=== PATIENT | female | born 1975 | race Two or more races ===

== ENCOUNTER 2024-07-06 18:57 | Emergency (ER) | payer MEDICAID, OTHER ==
[~2024-07-06] VITALS: Ht 165.1 cm; Wt 61.8 kg
--- NOTE | 2024-07-06 20:32 | ED.PDOC ---
GI ASSESSMENT HPI Comments PATIENT STATES SHE WAS HERE TO FOLLOW UP ON HER ABDOMINAL PAIN. SAYS SHE WAS SEEN TWO DAYS AGO BY DR. GALDAMEZ. STATES HE WAS RECOMMENDED THAT SHE MAY BENEFIT FROM ENDOSCOPY. SHE DOES NOT HAVE PRIMARY CARE DOCTOR NOR INSURANCE. STATES THE PAIN HE WAS SLIGHTLY IMPROVED BUT THE REGLAN SHE WAS SENT HOME WITH DOES NOT HELP MUCH WITH THE NAUSEA. Chief Complaint: Abdominal Pain Time Seen by MD: 19:00 Primary Care Provider: MYLENE Reviewed Notes: Nurses Notes Allergies: Coded Allergies: NO KNOWN ALLERGIES (Unverified , 07/06/24) Information Source: Patient Mode of Arrival: Ambulatory Past Medical History PAST MEDICAL HISTORY: Denies Surgical History: Denies all surgeries TRACK ANNOUNCER History: No Pertinent TRACK ANNOUNCER History Constitutional: denies: chills, diaphoresis, fatigue, fever, malaise, sweats, weakness, others EENTM: denies: blurred vision, double vision, ear bleeding, ear discharge, ear drainage, ear pain, ear ringing, eye pain, eye redness, hearing loss, mouth pain, mouth swelling, nasal discharge, nose bleeding, nose congestion, nose pain, photophobia, tearing, throat pain, throat swelling, voice changes, others Respiratory: denies: cough, hemoptysis, orthopnea, SOB at rest, shortness of breath, SOB with excertion, stridor, wheezing, others Cardiovascular: denies: chest pain, dizzy spells, diaphoresis, Dyspnea on exertion, edema, irregular heart beat, left arm pain, lightheadedness, palpitations, PND, syncope, others Gastrointestinal: reports: abdominal pain, nausea; denies: abdomen distended, blood streaked bowels, constipated, diarrhea, dysphagia, difficulty swallowing, hematemesis, melena, poor appetite, poor fluid intake, rectal bleeding, rectal pain, vomiting, others Genitourinary: denies: abnormal vagina bleeding, burning, dyspareunia, dysuria, flank pain, frequency, hematuria, incontinence, pain, , vagina discharge, urgency, others Neurological: denies: dizziness, fainting, headache, left sided numbness, left sided weakness, numbness, paresthesia, pre-existing deficit, right sided numbness, right sided weakness, seizure, speech problems, tingling, tremors, weakness, others Musculoskeletal: denies: back pain, gout, joint pain, joint swelling, muscle pain, muscle stiffness, neck pain, others Integumetry: denies: bruises, change in color, change in hair/nails, dryness, laceration, lesions, lumps, rash, wounds, others Allergic/Immunocompromised: denies: Difficulty Healing, Frequent Infections, Hives, Itching, others Hematologic/Lymphatic: denies: anemia, blood clots, easy bleeding, easy bruising, swollen glands, others Physical Exam General Appearance: No Apparent Distress, Normal HEENT: Normal ENT Inspection, Pharynx Normal, TMs Normal Neck: Full Range of Motion, Non-Tender, Normal, Normal Inspection Respiratory: Chest Non-Tender, Lungs Clear, No Accessory Muscle Use, No Respiratory Distress, Normal Breath Sounds Cardiovascular: No Edema, No JVD, No Murmur, No Gallop, Normal Peripheral Pulses, Regular Rate/Rhythm Breast Exam: Deferred Gastrointestinal: No Organomegaly, Non Tender, No Pulsatile Mass, Normal Bowel Sounds, Soft Genitalia: Deferred Pelvic: Deferred Rectal: Deferred Extremities: No calf tenderness, Normal capillary refill, Normal inspection, Normal range of motion, Non-tender, No pedal edema Musculoskeletal : Apperance: Normal Neurologic: Alert, 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 Was a procedure done?: No GI differential Dx Differential Diagnosis: Gastritis/PUD, Gastroenteritis X-Ray, Labs, Meds, VS Vital Signs Date Time Temp Pulse Resp B/P (MAP) Pulse Ox O2 Delivery O2 Flow Rate FiO2 07/06/24 19:05 97.7 64 18 100/70 (80) 98 X-Ray, Labs, Meds, VS Comment IMAGING: X-RAYS AND CT SCANS WERE REVIEWED AND INTERPRETED BY THIS PROVIDER, IMAGING SHOWS NO FRACTURES AND NO PATHOLOGICAL DISEASE. PENDING RADIOLOGY REVIEW. LABORATORY: LABS REVIEWED AND INTERPRETED BY THIS PROVIDER. NO SIGNIFICANT ABNORMALITIES NOTED. PATIENT HAS PRIOR MEDICAL VISITS REVIEWED. MED RECONCILIATION PERFORMED VITAL SIGNS REVIEWED Time of 1ST Reevaluation: 20:39 Reevaluation 1ST: Improved Patient Education/Counseling: Diagnosis, Treatment, Need For Follow Up (PATIENT ADVISED TO FOLLOW-UP IN THE EMERGENCY ROOM IN THE NEXT 24 TO 48 HOURS IF SYMPTOMS DO NOT IMPROVE. ADVISED FOLLOW-UP WITH PCP IN THE NEXT 3 TO 5 DAYS. PATIENT VERBALIZED UNDERSTANDING. ) Family Education/Counseling: Diagnosis, Treatment Departure 1 Departure Time of Disposition: 20:38 Impression: Primary Impression: Peptic ulcer with perforation and obstruction Disposition: HOME / SELF CARE / HOMELESS Condition: Fair e-Prescriptions Omeprazole (Omeprazole Dr) 40 Mg Cap 40 MG PO DAILY PRN, #20 CAP Prov: ALISSA LE 07/06/24 Discharged With: Self Critical Care Note Critical Care Time?: No Stability Stability form required: No Heart Score Heart Score: Heart Score Response (Comments) Value History N/A 0 EKG N/A 0 Age N/A 0 Risk Factors N/A 0 Troponin N/A 0 Total 0 ALISSA LE Jul 06, 2024 20:32
[2024-07-06] MEDS ORDERED: OMEP-448 PO (20:39)
[2024-07-06 22:00] VITALS: BP 114/65; PULSE 55; RESP 16; TEMP 97.7; O2SAT 97
[2024-07-06] MEDS: LIDOCAINE VISCOUS 2% 15ML UD MT ONE (22:14)
[2024-07-06] MEDS: MAALOX PLUS or MAALOX 30 ML PO ONE (22:14)
== END 2024-07-06 22:16 | disposition home or self-care (01) ==
LOC: ER 18:57
DX: K27.5 Chronic or unspecified peptic ulcer, site unspecified, with perforation (principal)